=== PATIENT | female | born 1970 | race Caucasian/White ===

== ENCOUNTER 2016-06-04 18:48 | Emergency (ER) | payer SELFPAY ==
--- NOTE | 2016-06-04 19:42 | EDM.PDOC ---
ED HPI GENERAL MEDICAL PROBLEM - General Chief Complaint: Genitourinary Problem Stated Complaint: UTI Time Seen by Provider: 06/04/16 19:36 - History of Present Illness INITIAL COMMENTS - FREE TEXT/NARRATIVE: HISTORY AND PHYSICAL: History of present illness: The patient is a 45-year-old female with a history of frequent UTIs and presents with similar symptoms to her prior UTIs including frequency urgency dysuria and lower back pain. The patient has had these symptoms for about one week and has tried [id number] Azo-Standard pushing hydration. She's had some nausea but no vomiting no diarrhea fevers or chills and no flank pain. Patient states she's been going menopause with hot flashes and intermittent spotting. Patient states that she "can never get " but doesn't elaborate on that. Patient otherwise has not had much of an appetite but is able to eat. Patient has been using [id number] Azo and has been trying to treat the symptoms at home with primary juices well. Review of systems: As per history of present illness and below otherwise all systems reviewed and negative. Past medical history: As per history of present illness and as reviewed below otherwise noncontributory. Surgical history: As per history of present illness and as reviewed below otherwise noncontributory. Social history: No reported history of drug or alcohol abuse. Family history: As per history of present illness and as reviewed below otherwise noncontributory. Physical exam: General: Well-developed well-nourished female who is nontoxic and speaking full sentences. Vital signs were noted by me. HEENT: Atraumatic, normocephalic, negative for conjunctival pallor or scleral icterus, mucous membranes tacky, throat clear, neck supple, nontender, trachea midline. Lungs: Clear to auscultation, breath sounds equal bilaterally, chest nontender. Heart: S1S2, regular, negative for clicks, rubs, or JVD. Abdomen: Soft, nondistended, mild suprapubic tenderness without rebound or guarding and bowel sounds are hypoactive Negative for masses or hepatosplenomegaly. Negative for costovertebral tenderness. Pelvis: Stable nontender. Genitourinary: Deferred. Rectal: Deferred. Extremities: Atraumatic, negative for cords or calf pain. Neurovascular unremarkable. Neuro: Awake, alert, oriented. Cranial nerves II through XII unremarkable. Cerebellum unremarkable. Motor and sensory unremarkable throughout. Exam nonfocal. Back: There are no midline step-offs in his defects of the thoracic or lumbar spine and no CVA tenderness and there is some right-sided paralumbar muscular tenderness on palpation without swelling or defects Diagnostics: UA urine culture UCG Therapeutics: Impression: UTI Definitive disposition and diagnosis as appropriate pending reevaluation and review of above. urinary Pain Score (Numeric/FACES): 10 - Related Data Allergies Allergy/AdvReac Type Severity Reaction Status Date / Time No Known Allergies Allergy Verified 06/04/16 19:21 Home Meds: Home Meds oxyCODONE HCl/Acetaminophen [Percocet 5-325 mg Tablet] 1 tab PO 06/04/16 [ History] Past Medical History - Past Health History Medical/Surgical History: Denies Medical/Surgical History Other HEENT History: Tonsilitis Cardiovascular History: Reports: Other (see below) Other Cardiovascular History: Patient reports past couple of heart racing at times that causes SOB Gastrointestinal History: Reports: Other (see below) Other Gastrointestinal History: Patient reports she was diagnosed with cellulitus of rectum in September and was given antibiotics. 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) Other OB/BYN History: Tubes tied - Infectious Disease History Infectious Disease History: Reports: Chicken pox - Past Surgical History GI Surgical History: Reports: Appendectomy Female Surgical History: Reports: Other (see below) Other Female Surgeries/Procedures: cyst on ovaries history Other Musculoskeletal Surgeries/Procedures:: broken left arm when 12 years old Social & Family History - Family History Family Medical History: Noncontributory Oncologic: Reports: Colon, Lung - Tobacco Use Smoking Status *Q: Current Every Day Smoker Years of Tobacco use: 20 Packs/Tins Daily: 2 Used Tobacco, but Quit: No Second Hand Smoke Exposure: Yes - Alcohol Use Days Per Week of Alcohol Use: 0 - Recreational Drug Use Recreational Drug Use: Yes Drug Use in Last 12 Months: Yes Recreational Drug Type: Reports: Marijuana/Hashish Recreational Drug Use Frequency: Daily ED ROS GENERAL - Review of Systems Review Of Systems: ROS reveals no pertinent complaints other than HPI. ED EXAM, GENERAL - Physical Exam Exam: See Below (See dictation) Course - Vital Signs Last Recorded V/S: Last Vital Signs Temp 36.8 C 06/04/16 19:22 Pulse 109 H 06/04/16 19:22 Resp 18 06/04/16 19:22 BP 138/87 06/04/16 19:22 Pulse Ox 98 06/04/16 19:22 - Orders/Labs/Meds Orders: Active Orders 24 hr Category Date Time Status CULTURE URINE [RM] Stat Lab 06/04/16 19:29 Received Labs: Laboratory Tests 06/04/16 06/04/16 Range/Units 19:29 19:29 Urine Color DARK YELLOW Urine Appearance CLOUDY Urine pH 6.0 (5.0-8.0) Ur Specific [place] >= 1.030 (1.001-1.035) Urine Protein 100 (NEGATIVE) mg/dL Urine Glucose (UA) NEGATIVE (NEGATIVE) mg/dL Urine Ketones TRACE H (NEGATIVE) mg/dL Urine Occult Blood LARGE H (NEGATIVE) Urine Nitrite NEGATIVE (NEGATIVE) Urine Bilirubin SMALL H (NEGATIVE) Urine Ictotest NEGATIVE Urine Urobilinogen 1.0 (<2.0) EU/dL Ur Leukocyte Esterase MODERATE (NEGATIVE) Urine RBC 2-6 (0-2/HPF) Urine WBC TO NUMEROUS TO COUNT H (0-5/HPF) Ur Epithelial Cells FEW (NONE-FEW) Calcium Oxalate Crystal RARE (NEGATIVE) Urine Bacteria 3+ H (NEGATIVE) Urine HCG, Qual NEGATIVE (NEGATIVE) Departure - Departure Time of Disposition: 21:01 Disposition: Home, Self-Care 01 Condition: good Clinical Impression: UTI, Urinary tract infectious disease Forms: ED Department Discharge Additional Instructions: The following information is given to patients seen in the emergency department who are being discharged to home. This information is to outline your options for follow-up care. We provide all patients seen in our emergency department with a follow-up referral. The need for follow-up, as well as the timing and circumstances, are variable depending upon the specifics of your emergency department visit. If you don't have a primary care physician on staff, we will provide you with a referral. We always advise you to contact your personal physician following an emergency department visit to inform them of the circumstance of the visit and for follow-up with them and/or the need for any referrals to a consulting specialist. The emergency department will also refer you to a specialist when appropriate. This referral assures that you have the opportunity for followup care with a specialist. All of these measure are taken in an effort to provide you with optimal care, which includes your followup. Under all circumstances we always encourage you to contact your private physician who remains a resource for coordinating your care. When calling for followup care, please make the office aware that this follow-up is from your recent emergency room visit. If for any reason you are refused follow-up, please contact the [facility] emergency department at and ask to speak to the emergency department charge nurse. [facility] Primary care- [place] [address] Please push hydration as we discussed and take antibiotics until they are finished. These followup with provider in the clinic for further care and evaluation and return here as needed and as discussed. - My Orders Last 24 Hours: My Active Orders 06/04/16 19:29 CULTURE URINE [RM] Stat - Assessment/Plan Last 24 Hours: My Active Orders 06/04/16 19:29 CULTURE URINE [RM] Stat
[2016-06-05 05:50] VITALS: BP 134/95
== END 2016-06-04 21:16 | disposition home or self-care (01) ==
LOC: MW.ED 18:48
DX: N39.0 Urinary tract infection, site not specified (principal); Z90.49 Acquired absence of other specified parts of digestive tract; Z98.890 Other specified postprocedural states; F17.210 Nicotine dependence, cigarettes, uncomplicated
CPT/HCPCS: 81001; 81025; 87086; 87088; 87186; 99283

== ENCOUNTER 2017-01-28 14:54 | Emergency (ER) | payer SELFPAY ==
[2017-01-28] MEDS ORDERED: Lidocaine 1% 20 ML MDV INJECT ONE (15:17)
[2017-01-28] MEDS ORDERED: Bupivacaine 0.5% 10 ML SDV INJECT ONE (15:17)
--- NOTE | 2017-01-28 15:54 | EDM.PDOC ---
ED HPI GENERAL MEDICAL PROBLEM - General Chief Complaint: Skin Complaint Stated Complaint: BOIL UNDER BOTH ARMPITS Time Seen by Provider: 01/28/17 15:09 Source of Information: Reports: Patient History Limitations: Reports: No Limitations - History of Present Illness INITIAL COMMENTS - FREE TEXT/NARRATIVE: History of present illness: []Patient noted painful lumps in both her armpits 4 days ago. She has never had these before states that she recently changed her deodorant to a spray and uses a different razor with a lubricant on it. Yesterday the left under arm popped and drained fluid but she has to on the right under arm that are increasing in size and pain. Denies any fevers. Review of systems: As per history of present illness and below otherwise all systems reviewed and negative. Past medical history: As per history of present illness and as reviewed below otherwise noncontributory. Surgical history: As per history of present illness and as reviewed below otherwise noncontributory. Social history: No reported history of drug or alcohol abuse. Family history: As per history of present illness and as reviewed below otherwise noncontributory. Physical exam: General: Well developed, well nourished in NAD HEENT: Atraumatic, normocephalic, pupils reactive, negative for conjunctival pallor or scleral icterus, mucous membranes moist, throat clear, neck supple, nontender, trachea midline. Lungs: Clear to auscultation, breath sounds equal bilaterally, chest nontender. Heart: S1S2, regular, negative for clicks, rubs, or JVD. Abdomen: Soft, nondistended, nontender. Negative for masses or hepatosplenomegaly. Negative for costovertebral tenderness. Pelvis: Stable nontender. Genitourinary: Deferred. Rectal: Deferred. Extremities: One abscess on the left axilla minimal fluctuance approximately 1 cm by half a centimeter without spreading erythema. The right axilla has lesions 1 fluctuant that is 2 cm x 2 cm and one that is half a centimeter by half centimeter and nonfluctuant., negative for cords or calf pain. Neurovascular unremarkable. Neuro: Awake, alert, oriented. Cranial nerves II through XII unremarkable. Cerebellum unremarkable. Motor and sensory unremarkable throughout. Exam nonfocal. Diagnostics: [] Therapeutics: []I&D 2 of the 3 abscesses with MRSA wound culture ordered Impression: []Axillary abscesses bilaterally Plan: []Remove packing tomorrow, continue warm soaks tramadol for pain Bactrim as directed until gone follow-up primary care physician Definitive disposition and diagnosis as appropriate pending reevaluation and review of above. Bilateral Arm Pain Score (Numeric/FACES): 10 - Related Data Allergies Allergy/AdvReac Type Severity Reaction Status Date / Time No Known Allergies Allergy Verified 01/28/17 15:18 Home Meds: Home Meds Sulfamethoxazole/Trimethoprim [Bactrim Ds Tablet] 1 each PO BID #20 tablet 01/28 [Rx] traMADol [Ultram] 50 mg PO Q8H PRN #16 tablet 01/28/17 [Rx] Past Medical History - Past Health History Medical/Surgical History: Denies Medical/Surgical History Other HEENT History: Tonsilitis Cardiovascular History: Reports: Other (See Below) Other Cardiovascular History: Patient reports past couple of heart racing at times that causes SOB Gastrointestinal History: Reports: Other (See Below) Other Gastrointestinal History: Patient reports she was diagnosed with cellulitus of rectum in September and was given antibiotics. 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 - Infectious Disease History Infectious Disease History: Reports: Chicken Pox - Past Surgical History Female Surgical History: Reports: Other (See Below) Other Musculoskeletal Surgeries/Procedures:: broken left arm when 12 years old Social & Family History - Family History Family Medical History: Noncontributory Oncologic: Reports: Colon, Lung - Tobacco Use Smoking Status *Q: Current Some Day Smoker Years of Tobacco use: 20 Packs/Tins Daily: 1 Used Tobacco, but Quit: No Second Hand Smoke Exposure: Yes - Caffeine Use Caffeine Use: Reports: Coffee - Alcohol Use Days Per Week of Alcohol Use: 0 - Recreational Drug Use Recreational Drug Use: Yes Drug Use in Last 12 Months: Yes Recreational Drug Type: Reports: Marijuana/Hashish Recreational Drug Use Frequency: Monthly ED ROS GENERAL - Review of Systems Review Of Systems: See Below (See history of present illness) ED EXAM, SKIN/RASH Exam: See Below (See history of present illness) Course - Vital Signs Last Recorded V/S: Last Vital Signs Temp 97.6 F 01/28/17 15:20 Pulse 76 01/28/17 15:20 Resp 20 01/28/17 15:20 BP 117/72 01/28/17 15:20 Pulse Ox 100 01/28/17 15:20 - Orders/Labs/Meds Orders: Active Orders 24 hr Category Date Time Status CULTURE MRSA [RM] Stat Lab 01/28/17 15:52 Ordered Meds: Medications Discontinued Medications Generic Name Dose Route Start Last Admin Trade Name Freale PRN Reason Stop Dose Admin Bupivacaine HCl 10 ml 01/28/17 15:17 01/28/17 15:30 Sensorcaine-Mpf 0.5% INJECT 01/28/17 15:18 10 ml ONETIME ONE Administration Lidocaine HCl 20 ml 01/28/17 15:17 01/28/17 15:30 Xylocaine 1% INJECT 01/28/17 15:18 20 ml ONETIME ONE Administration Departure - Departure Time of Disposition: 15:54 Disposition: Home, Self-Care 01 Condition: Good Clinical Impression: Abscesses of both axillae - Discharge Information Prescriptions: Sulfamethoxazole/Trimethoprim [Bactrim Ds Tablet] 1 each PO BID #20 tablet traMADol [Ultram] 50 mg PO Q8H PRN #16 tablet PRN Reason: Pain Referrals: PCP,None [Primary Care Provider] - Forms: ED Department Discharge Additional Instructions: The following information is given to patients seen in the emergency department who are being discharged to home. This information is to outline your options for follow-up care. We provide all patients seen in our emergency department with a follow-up referral. The need for follow-up, as well as the timing and circumstances, are variable depending upon the specifics of your emergency department visit. If you don't have a primary care physician on staff, we will provide you with a referral. We always advise you to contact your personal physician following an emergency department visit to inform them of the circumstance of the visit and for follow-up with them and/or the need for any referrals to a consulting specialist. The emergency department will also refer you to a specialist when appropriate. This referral assures that you have the opportunity for follow-up care with a specialist. All of these measure are taken in an effort to provide you with optimal care, which includes your follow-up. Under all circumstances we always encourage you to contact your private physician who remains a resource for coordinating your care. When calling for follow-up care, please make the office aware that this follow-up is from your recent emergency room visit. If for any reason you are refused follow-up, please contact the [facility] Emergency Department at and asked to speak to the emergency department charge nurse. Remove packing tomorrow, warm soaks as much as possible, Take Bactrim and Ultram as directed, follow up with primary care physician when available. [facility] [address] [place] [id number] - My Orders Last 24 Hours: My Active Orders 01/28/17 15:52 CULTURE MRSA [RM] Stat - Assessment/Plan Last 24 Hours: My Active Orders 01/28/17 15:52 CULTURE MRSA [RM] Stat
[2017-01-28 16:13] VITALS: BP 127/80
== END 2017-01-28 16:09 | disposition home or self-care (01) ==
LOC: EEVIPCON 14:54 → MW.ED 14:54
DX: L02.411 Cutaneous abscess of right axilla (principal); L02.412 Cutaneous abscess of left axilla; F17.210 Nicotine dependence, cigarettes, uncomplicated
CPT/HCPCS: 10060; 87070; 87077; 87186; 99283

== ENCOUNTER 2017-04-14 13:59 | Emergency (ER) | payer SELFPAY ==
[2017-04-14 14:03] VITALS: BP 107/83
--- NOTE | 2017-04-14 14:03 | EDM.PDOC ---
ED HPI GENERAL MEDICAL PROBLEM - General Chief Complaint: Chest Pain Stated Complaint: AMB Time Seen by Provider: 04/14/17 14:03 Source of Information: Reports: Patient, EMS, EMS Notes Reviewed History Limitations: Reports: No Limitations - History of Present Illness INITIAL COMMENTS - FREE TEXT/NARRATIVE: HISTORY AND PHYSICAL: [46-year-old female presenting per EMS with concerns over cough and flu symptoms and chest pain] History of Present Illness: Patient's been sick for the last 2 days with flulike illness cough coughing hurts her chest Review of Systems: As per history of present illness and below otherwise all systems reviewed and negative. Past medical history: As per history of present illness and as reviewed below otherwise noncontributory. Surgical history: As per history of present illness and as reviewed below otherwise noncontributory. Social history: No reported history of drug or alcohol abuse. Family history: As per history of present illness and as reviewed below otherwise noncontributory. Physical exam: Alert and oriented female who is teary, denies having history of any panic attacks HEENT: Atraumatic, normocehpalic, pupils reactive, negative for conjunctival pallor or scleral icterus, mucous membranes moist, throat clear, neck supple, nontender, trachea midline. Lungs: Crackles on auscultation, breath sounds equal bilaterally, chest tender with light palpation to her sternal area and ribs. Heart: S1S2, regular, negative for clicks, rubs, or JVD. Abdomen: Soft, nondistended, nontender. Negative for masses or hepatossplenmegaly. Mild bilateral for costovertebral tenderness. Pelvis: Stable nontender. Genitourinary: Deferred. Rectal: Deferred Extremities: Atraumatic, negative for cords or calf pain. Neurovascular unremarkable. Neuro: Awake, alert, oriented. Cranial nerves II through XII unremarkable. Cerebellum unremarkable. Motor and sensory unremarkable throughout. Exam nonfocal. Discussed with the patient that all her testing is fairly normal there is perhaps an early urinary tract infection The sternum and chest wall is hurting likely due to the coughing that she has been experiencing Diagnostics: [CBC CMP UA influenza rapid strep] Therapeutics: [] Impression: [Viral syndrome Chest wall pain] UTI Plan: [Discharged to home Bactrim DS 1 twice daily 5 days Follow-up with your primary care next week] Definitive disposition and diagnosis as appropriate pending reevaluation and review of above. Onset: Gradual Duration: Day(s): (2), Getting Worse Location: Reports: Chest Quality: Reports: Ache Severity: Mild Improves with: Reports: None Worsens with: Reports: None Associated Symptoms: Reports: Cough, Nausea/Vomiting Left Chest Pain Score (Numeric/FACES): 10 - Related Data Allergies Allergy/AdvReac Type Severity Reaction Status Date / Time No Known Allergies Allergy Verified 04/14/17 14:03 Home Meds: Home Meds Sulfamethoxazole/Trimethoprim [Bactrim Ds Tablet] 1 each PO Q12HR #10 tablet [Rx] Past Medical History - Past Health History Medical/Surgical History: Denies Medical/Surgical History Other HEENT History: Tonsilitis Cardiovascular History: Reports: Other (See Below) Other Cardiovascular History: Patient reports past couple of heart racing at times that causes SOB Gastrointestinal History: Reports: Other (See Below) Other Gastrointestinal History: Patient reports she was diagnosed with cellulitus of rectum in September and was given antibiotics. 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 (See Below) Other OB/BYN History: Tubes tied - Infectious Disease History Infectious Disease History: Reports: Chicken Pox - Past Surgical History Female Surgical History: Reports: Other (See Below) Other Musculoskeletal Surgeries/Procedures:: broken left arm when 12 years old Social & Family History - Family History Family Medical History: Noncontributory Oncologic: Reports: Colon, Lung - Tobacco Use Smoking Status *Q: Current Some Day Smoker Years of Tobacco use: 20 Packs/Tins Daily: 1 Used Tobacco, but Quit: No Second Hand Smoke Exposure: Yes - Caffeine Use Caffeine Use: Reports: Coffee - Alcohol Use Days Per Week of Alcohol Use: 0 - Recreational Drug Use Recreational Drug Use: Yes Drug Use in Last 12 Months: Yes Recreational Drug Type: Reports: Marijuana/Hashish Recreational Drug Use Frequency: Monthly ED ROS GENERAL - Review of Systems Review Of Systems: ROS reveals no pertinent complaints other than HPI. ED EXAM, GENERAL - Physical Exam Exam: See Below (see dictation) Course - Vital Signs Last Recorded V/S: Last Vital Signs Temp 36.1 C 04/14/17 14:00 Pulse 90 04/14/17 14:00 Resp 22 H 04/14/17 14:00 BP 107/83 04/14/17 14:00 Pulse Ox 98 04/14/17 14:00 - Orders/Labs/Meds Orders: Active Orders 24 hr Category Date Time Status CULTURE STREP A CONFIRMATION [] Stat Lab 04/14/17 14:30 Results STREP SCRN A RAPID W CULT CONF [] Stat Lab 04/14/17 14:30 Results Sodium Chloride 0.9% [Normal Saline] 500 ml Med 04/14/17 14:30 Active IV STAT Sodium Chloride 0.9% [Saline Flush] Med 04/14/17 14:06 Active 10 ml FLUSH ASDIRECTED PRN Sodium Chloride 0.9% [Saline Flush] Med 04/14/17 14:06 Active 2.5 ml FLUSH ASDIRECTED PRN Saline Lock Insert [OM.PC] Stat Oth 04/14/17 14:06 Ordered Medication Orders Sodium Chloride (Normal Saline) 500 mls @ 999 mls/hr IV STAT CHAU Last Admin: 04/14/17 14:40 Dose: 999 mls/hr Sodium Chloride (Saline Flush) 10 ml FLUSH ASDIRECTED PRN PRN Reason: Keep Vein Open Sodium Chloride (Saline Flush) 2.5 ml FLUSH ASDIRECTED PRN PRN Reason: Keep Vein Open Labs: Laboratory Tests 04/14/17 04/14/17 04/14/17 Range/Units 14:42 14:42 14:42 WBC 6.76 (4.0-11.0) K/uL RBC 5.09 (4.30-5.90) M/uL Hgb 15.9 (12.0-16.0) g/dL Hct 44.8 (36.0-46.0) % MCV 88.0 (80.0-98.0) fL MCH 31.2 (27.0-32.0) pg MCHC 35.5 (31.0-37.0) g/dL RDW Std Deviation 42.6 (28.0-62.0) fl RDW Coeff of Jennifer 13 (11.0-15.0) % Plt Count 181 (150-400) K/uL MPV 10.70 (7.40-12.00) fL Neut % (Auto) 45.1 L (48.0-80.0) % Lymph % (Auto) 44.7 H (16.0-40.0) % [place] % (Auto) 7.2 (0.0-15.0) % Eos % (Auto) 2.7 (0.0-7.0) % Baso % (Auto) 0.3 (0.0-1.5) % Neut # (Auto) 3.1 (1.4-5.7) K/uL Lymph # (Auto) 3.0 H (0.6-2.4) K/uL [place] # (Auto) 0.5 (0.0-0.8) K/uL Eos # (Auto) 0.2 (0.0-0.7) K/uL Baso # (Auto) 0.0 (0.0-0.1) K/uL Nucleated RBC % 0.0 /100WBC Nucleated RBCs # 0 K/uL Sodium 138 (136-146) mmol/L Potassium 4.0 (3.5-5.1) mmol/L Chloride 104 (98-110) mmol/L Carbon Dioxide 22 (21-31) mmol/L BUN 18 (6.0-23.0) mg/dL Creatinine 1.0 (0.6-1.5) mg/dL Est Cr Clr Drug Dosing 55.60 mL/min Estimated GFR (MDRD) 59.7 ml/min Glucose 94 (60-110) mg/dL Calcium 10.1 (8.8-10.8) mg/dL Total Bilirubin 0.6 (0.1-1.5) mg/dL AST 12 (5-40) IU/L ALT 14 (8-54) IU/L Alkaline Phosphatase 97 (40-150) Troponin I < 0.10 (0.0-0.29) NG/ML Total Protein 7.9 (6.0-8.0) g/dL Albumin 4.5 (3.5-5.0) g/dL Globulin 3.4 (2.0-3.5) g/dL Albumin/Globulin Ratio 1.3 (1.3-2.8) Urine Color Urine Appearance Urine pH (5.0-8.0) Ur Specific [place] (1.001-1.035) Urine Protein (NEGATIVE) mg/dL Urine Glucose (UA) (NEGATIVE) mg/dL Urine Ketones (NEGATIVE) mg/dL Urine Occult Blood (NEGATIVE) Urine Nitrite (NEGATIVE) Urine Bilirubin (NEGATIVE) Urine Ictotest Urine Urobilinogen (<2.0) EU/dL Ur Leukocyte Esterase (NEGATIVE) Urine RBC (0-2/HPF) Urine WBC (0-5/HPF) Ur Epithelial Cells (NONE-FEW) Urine Bacteria (NEGATIVE) Urine Mucus (NONE-MOD) 04/14/17 Range/Units 15:15 WBC (4.0-11.0) K/uL RBC (4.30-5.90) M/uL Hgb (12.0-16.0) g/dL Hct (36.0-46.0) % MCV (80.0-98.0) fL MCH (27.0-32.0) pg MCHC (31.0-37.0) g/dL RDW Std Deviation (28.0-62.0) fl RDW Coeff of Jennifer (11.0-15.0) % Plt Count (150-400) K/uL MPV (7.40-12.00) fL Neut % (Auto) (48.0-80.0) % Lymph % (Auto) (16.0-40.0) % [place] % (Auto) (0.0-15.0) % Eos % (Auto) (0.0-7.0) % Baso % (Auto) (0.0-1.5) % Neut # (Auto) (1.4-5.7) K/uL Lymph # (Auto) (0.6-2.4) K/uL [place] # (Auto) (0.0-0.8) K/uL Eos # (Auto) (0.0-0.7) K/uL Baso # (Auto) (0.0-0.1) K/uL Nucleated RBC % /100WBC Nucleated RBCs # K/uL Sodium (136-146) mmol/L Potassium (3.5-5.1) mmol/L Chloride (98-110) mmol/L Carbon Dioxide (21-31) mmol/L BUN (6.0-23.0) mg/dL Creatinine (0.6-1.5) mg/dL Est Cr Clr Drug Dosing mL/min Estimated GFR (MDRD) ml/min Glucose (60-110) mg/dL Calcium (8.8-10.8) mg/dL Total Bilirubin (0.1-1.5) mg/dL AST (5-40) IU/L ALT (8-54) IU/L Alkaline Phosphatase (40-150) Troponin I (0.0-0.29) NG/ML Total Protein (6.0-8.0) g/dL Albumin (3.5-5.0) g/dL Globulin (2.0-3.5) g/dL Albumin/Globulin Ratio (1.3-2.8) Urine Color YELLOW Urine Appearance CLEAR Urine pH 6.0 (5.0-8.0) Ur Specific [place] >= 1.030 (1.001-1.035) Urine Protein TRACE (NEGATIVE) mg/dL Urine Glucose (UA) NEGATIVE (NEGATIVE) mg/dL Urine Ketones TRACE H (NEGATIVE) mg/dL Urine Occult Blood NEGATIVE (NEGATIVE) Urine Nitrite NEGATIVE (NEGATIVE) Urine Bilirubin MODERATE H (NEGATIVE) Urine Ictotest NEGATIVE Urine Urobilinogen 1.0 (<2.0) EU/dL Ur Leukocyte Esterase TRACE (NEGATIVE) Urine RBC 0-1 (0-2/HPF) Urine WBC 0-1 (0-5/HPF) Ur Epithelial Cells MODERATE (NONE-FEW) Urine Bacteria FEW (NEGATIVE) Urine Mucus MODERATE (NONE-MOD) Meds: Medications Generic Name Dose Route Start Last Admin Trade Name Freq PRN Reason Stop Dose Admin Sodium Chloride 500 mls @ 999 mls/hr 04/14/17 14:30 04/14/17 14:40 Normal Saline IV 999 mls/hr STAT CHAU Administration Sodium Chloride 10 ml 04/14/17 14:06 Saline Flush FLUSH ASDIRECTED PRN Keep Vein Open Sodium Chloride 2.5 ml 04/14/17 14:06 Saline Flush FLUSH ASDIRECTED PRN Keep Vein Open Discontinued Medications Generic Name Dose Route Start Last Admin Trade Name Freq PRN Reason Stop Dose Admin Ketorolac Tromethamine 30 mg 04/14/17 14:17 04/14/17 14:39 Toradol IVPUSH 04/14/17 14:18 30 mg ONETIME ONE Administration Morphine Sulfate 2 mg 04/14/17 16:00 Morphine IVPUSH 04/14/17 16:01 ONETIME ONE Ondansetron HCl 4 mg 04/14/17 14:17 04/14/17 14:40 Zofran IVPUSH 04/14/17 14:18 4 mg ONETIME ONE Administration Departure - Departure Time of Disposition: 16:05 Disposition: Home, Self-Care 01 Condition: Good Clinical Impression: Chest wall pain, Viral syndrome UTI (urinary tract infection) Qualifiers: Urinary tract infection type: site unspecified Hematuria presence: without hematuria Qualified Code(s): N39.0 - Urinary tract infection, site not specified Prescriptions: Sulfamethoxazole/Trimethoprim [Bactrim Ds Tablet] 1 each PO Q12HR #10 tablet Instructions: Urinary Tract Infection, Adult, Chest Wall Pain Referrals: PCP,Unknown [Primary Care Provider] - Forms: ED Department Discharge Additional Instructions: The following information is given to patients seen in the emergency department who are being discharged to home. This information is to outline your options for follow-up care. We provide all patients seen in our emergency department with a follow-up referral. The need for follow-up, as well as the timing and circumstances, are variable depending upon the specifics of your emergency department visit. If you don't have a primary care physician on staff, we will provide you with a referral. We always advise you to contact your personal physician following an emergency department visit to inform them of the circumstance of the visit and for follow-up with them and/or the need for any referrals to a consulting specialist. The emergency department will also refer you to a specialist when appropriate. This referral assures that you have the opportunity for followup care with a specialist. All of these measure are taken in an effort to provide you with optimal care, which includes your followup. Under all circumstances we always encourage you to contact your private physician who remains a resource for coordinating your care. When calling for followup care, please make the office aware that this follow-up is from your recent emergency room visit. If for any reason you are refused follow-up, please contact the [facility] emergency department at and asked to speak to the emergency department charge nurse. You've been found to have a viral illness while in the emergency department You're chest pain is likely due to your coughing You also had a urinary tract infection Follow-up next week with your primary care provider or return to the emergency department if worse over the weekend - My Orders Last 24 Hours: My Active Orders 04/14/17 14:06 Sodium Chloride 0.9% [Saline Flush] 10 ml FLUSH ASDIRECTED PRN Sodium Chloride 0.9% [Saline Flush] 2.5 ml FLUSH ASDIRECTED PRN Saline Lock Insert [OM.PC] Stat 04/14/17 14:30 CULTURE STREP A CONFIRMATION [RM] Stat STREP SCRN A RAPID W CULT CONF [RM] Stat Sodium Chloride 0.9% [Normal Saline] 500 ml IV STAT - Assessment/Plan Last 24 Hours: My Active Orders 04/14/17 14:06 Sodium Chloride 0.9% [Saline Flush] 10 ml FLUSH ASDIRECTED PRN Sodium Chloride 0.9% [Saline Flush] 2.5 ml FLUSH ASDIRECTED PRN Saline Lock Insert [OM.PC] Stat 04/14/17 14:30 CULTURE STREP A CONFIRMATION [RM] Stat STREP SCRN A RAPID W CULT CONF [RM] Stat Sodium Chloride 0.9% [Normal Saline] 500 ml IV STAT
[2017-04-14] MEDS ORDERED: Sodium Chloride 0.9% 10 ML Syringe FLUSH PRN (14:06)
[2017-04-14] MEDS ORDERED: Sodium Chloride 0.9% 2.5 ML Syringe FLUSH PRN (14:06)
[2017-04-14] MEDS ORDERED: Ondansetron 4 MG/2 ML SDV IVPUSH ONE (14:17)
[2017-04-14] MEDS ORDERED: Ketorolac 30 MG/ML SDV IVPUSH ONE (14:17)
[2017-04-14] MEDS ORDERED: Sodium Chloride 0.9% 500 ML IV SCH (14:30)
--- NOTE | 2017-04-14 15:32 | CR ---
EXAMINATION: Two-view chest (PA and Lateral views). HISTORY: Chest wall pain. FINDINGS: The trachea is midline. The cardiomediastinal silhouette is within normal limits. No pulmonary infilt rates, effusions or pneumothorax. Osseous structures appear unremarkable. IMPRESSION: No acute cardiopulmonary process.
[2017-04-14] MEDS ORDERED: Morphine 2 MG/ML Syringe IVPUSH ONE (16:00)
== END 2017-04-14 16:40 | disposition home or self-care (01) ==
LOC: MW.ED 13:59
DX: R07.89 Other chest pain (principal); B34.9 Viral infection, unspecified; N39.0 Urinary tract infection, site not specified; F17.210 Nicotine dependence, cigarettes, uncomplicated
CPT/HCPCS: 36415; 71046; 80053; 81001; 84484; 85025; 87081; 87804; 87880; 93005; 96361; 96374; 96375; 99285; J1885; J2270; J2405; J7040; 99283

== ENCOUNTER 2018-11-18 09:30 | Emergency (ER) | payer SELFPAY ==
--- NOTE | 2018-11-18 09:57 | EDM.PDOC ---
ED HPI GENERAL MEDICAL PROBLEM - General Chief Complaint: Skin Complaint Stated Complaint: RIGHT LOWER ARM BOIL Time Seen by Provider: 11/18/18 09:45 - History of Present Illness INITIAL COMMENTS - FREE TEXT/NARRATIVE: HISTORY AND PHYSICAL: History of present illness: Patient's 48-year-old white female presents with concern of subcutaneous nodule in the right axilla she's had similar episodes in the past related to axillary abscesses. No fever chills nausea vomiting or other complaints Review of systems: As per history of present illness and below otherwise all systems reviewed and negative. Past medical history: As per history of present illness and as reviewed below otherwise noncontributory. Surgical history: As per history of present illness and as reviewed below otherwise noncontributory. Social history: No reported history of drug or alcohol abuse. Family history: As per history of present illness and as reviewed below otherwise noncontributory. Physical exam: HEENT: Atraumatic, normocephalic, pupils reactive, negative for conjunctival pallor or scleral icterus, mucous membranes moist, throat clear, neck supple, nontender, trachea midline. Lungs: Clear to auscultation, breath sounds equal bilaterally, chest nontender. Heart: S1S2, regular, negative for clicks, rubs, or JVD. Abdomen: Soft, nondistended, nontender. Negative for masses or hepatosplenomegaly. Negative for costovertebral tenderness. Pelvis: Stable nontender. Genitourinary: Deferred. Rectal: Deferred. Extremities: Atraumatic, negative for cords or calf pain. Neurovascular unremarkable. As a subcutaneous nodule quite possibly representing a adenitis in her right axilla there is no fluctuance minimal erythema there some tenderness to palpation Neuro: Awake, alert, oriented. Cranial nerves II through XII unremarkable. Cerebellum unremarkable. Motor and sensory unremarkable throughout. Exam nonfocal. Diagnostics: None Therapeutics: None Impression: #1 subcutaneous nodule right axilla probable axillary adenitis Definitive disposition and diagnosis as appropriate pending reevaluation and review of above. right armpit Pain Score (Numeric/FACES): 10 - Related Data Allergies Allergy/AdvReac Type Severity Reaction Status Date / Time No Known Allergies Allergy Verified 02/07/18 10:20 Home Meds: Home Meds . [No Known Home Meds] 11/18/18 [History] Past Medical History - Past Health History Medical/Surgical History: Denies Medical/Surgical History Other HEENT History: Tonsilitis Cardiovascular History: Reports: Other (See Below) Other Cardiovascular History: Patient reports past couple of heart racing at times that causes SOB Gastrointestinal History: Reports: Other (See Below) Other Gastrointestinal History: Patient reports she was diagnosed with cellulitus of rectum in September and was given antibiotics. 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 Below) Other KNITTER WIRE MESH History: Ovarian cyst, Tubes tied Musculoskeletal History: Reports: Fracture - Infectious Disease History Infectious Disease History: Reports: Chicken Pox - Past Surgical History GI Surgical History: Reports: Appendectomy Female Surgical History: Reports: Other (See Below) Other Musculoskeletal Surgeries/Procedures:: broken left arm when 12 years old Social & Family History - Family History Family Medical History: Noncontributory Oncologic: Reports: Colon, Lung - Tobacco Use Smoking Status *Q: Current Every Day Smoker Years of Tobacco use: 20 Packs/Tins Daily: 1 - Caffeine Use Caffeine Use: Reports: Coffee - Recreational Drug Use Recreational Drug Use: No ED ROS GENERAL - Review of Systems Review Of Systems: ROS reveals no pertinent complaints other than HPI. ED EXAM, SKIN/RASH Exam: See Below (dictation) Course - Vital Signs Text/Narrative:: I discussed the absence of fluctuance with patient the induration and the need for follow-up Gen. surgery and that this indeed may be evolving abscess and ultimately need incision and drainage but this point does not she understands and agrees she will use warm compresses as directed Motrin Tylenol as directed and take Keflex as prescribed Last Recorded V/S: Last Vital Signs Temp 36.1 C 11/18/18 09:46 Pulse 92 11/18/18 09:46 Resp 20 11/18/18 09:46 BP 129/87 11/18/18 09:46 Pulse Ox 100 11/18/18 09:46 Departure - Departure Time of Disposition: 09:56 Disposition: Home, Self-Care 01 Condition: Good Clinical Impression: Subcutaneous nodule, Adenitis - Discharge Information Referrals: PCP,None [Primary Care Provider] - Additional Instructions: The following information is given to patients seen in the emergency department who are being discharged to home. This information is to outline your options for follow-up care. We provide all patients seen in our emergency department with a follow-up referral. The need for follow-up, as well as the timing and circumstances, are variable depending upon the specifics of your emergency department visit. If you don't have a primary care physician on staff, we will provide you with a referral. We always advise you to contact your personal physician following an emergency department visit to inform them of the circumstance of the visit and for follow-up with them and/or the need for any referrals to a consulting specialist. The emergency department will also refer you to a specialist when appropriate. This referral assures that you have the opportunity for followup care with a specialist. All of these measure are taken in an effort to provide you with optimal care, which includes your followup. Under all circumstances we always encourage you to contact your private physician who remains a resource for coordinating your care. When calling for followup care, please make the office aware that this follow-up is from your recent emergency room visit. If for any reason you are refused follow-up, please contact the [facility] emergency department at and asked to speak to the emergency department charge nurse. [facility] [address] [place] [id number] [facility] General [facility] Professional Building [address] [place] [address], [address] [place] [address] Keflex as prescribed warm compresses as directed Motrin/Tylenol as directed follow-up with general surgery above and primary care call to schedule appointment return as needed as discussed
[2018-11-18 10:15] VITALS: BP 127/86; PULSE 86
== END 2018-11-18 10:13 | disposition home or self-care (01) ==
LOC: MW.ED 09:30
DX: R22.31 Localized swelling, mass and lump, right upper limb (principal); F17.200 Nicotine dependence, unspecified, uncomplicated
CPT/HCPCS: 99283

== ENCOUNTER 2018-11-28 09:42 | Emergency (ER) | payer SELFPAY ==
[2018-11-28 09:54] VITALS: BP 151/88; PULSE 89
[2018-11-28] MEDS ORDERED: Ondansetron 4 MG Tab.DIS PO ONE (10:08)
[2018-11-28] MEDS ORDERED: Lidocaine 1% with EPINEPHrine 1:100,000 20 ML MDV INJECT ONE (10:08)
[2018-11-28] MEDS ORDERED: HYDROmorphone 1 MG/ML Syringe IM ONE (10:08)
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
[2018-11-28] MEDS ORDERED: Bupivacaine 0.5% 10 ML SDV INJECT ONE (10:09)
== END 2018-11-28 11:40 | disposition home or self-care (01) ==
LOC: MW.ED 09:42
DX: L02.411 Cutaneous abscess of right axilla (principal); F17.210 Nicotine dependence, cigarettes, uncomplicated
CPT/HCPCS: 10060; 96372; 99282; A9270; J1170; J3490

== ENCOUNTER 2019-03-25 18:57 | Emergency (ER) | payer SELFPAY ==
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
[2019-03-25] MEDS ORDERED: Bacitracin Oint 1 GM U/D Packet TOP ONE (19:37)
--- NOTE | 2019-03-25 20:12 | CR ---
Chest: 2 views of the chest were obtained. Comparison: Prior chest x-ray of 04/14/17. Heart size and mediastinum are within normal limits. Lungs are clear. Slight scoliosis is noted within the spine. Bony structures show nothing acute. Impression: 1. Scoliosis. Nothing acute is appreciated on 2 view chest x-ray. Diagnostic code #2 Study was dictated in [place] Standard Time
--- NOTE | 2019-03-25 20:17 | CT ---
CT facial bones Technique: Multiple axial sections through the facial bones were obtained. Reconstructed coronal and sagittal images were reviewed. Comparison: No prior study. Findings: Mastoid sinuses are clear. Visualized paranasal sinuses are also clear. Soft tissue swelling is seen within the left cheek and around the left periorbital region. Soft tissue swelling also noted within the forehead scalp. Right and left globes are symmetric. No retrobulbar abnormality is appreciated. No orbital fracture is seen. No maxillary wall fracture is identified. Mandible is intact without fracture. Zygomatic arches are also intact. Impression: 1. Soft tissue swelling on the left side as described above. 2. No acute bony abnormality is appreciated. Diagnostic code #3 Study was dictated in [place] Standard Time
--- NOTE | 2019-03-25 20:17 | CT ---
Head CT Technique: Multiple axial sections through the brain were obtained. Intravenous contrast was not utilized. Comparison: No previous study. Findings: Soft tissue tissue swelling is seen around the left periorbital region and within the left forehead scalp. Ventricles along with basal cisterns and sulci over the convexities are within normal limits for the patient's age. No abnormal parenchymal densities are seen. No evidence of intracranial hemorrhage. No midline shift or mass effect is seen. Visualized paranasal sinuses show nothing acute. Visualized paranasal sinuses show nothing acute. No acute calvarial abnormality is appreciated. Impression: 1. Soft tissue swelling as described above. 2. No acute intracranial abnormality is appreciated. Diagnostic code #2 Study was dictated in [place] Standard Time
[2019-03-25 20:29] VITALS: BP 127/90; PULSE 109
== END 2019-03-25 20:34 | disposition home or self-care (01) ==
LOC: MW.ED 18:57
DX: S09.90XA Unspecified injury of head, initial encounter (principal); S20.212A Contusion of left front wall of thorax, initial encounter; S00.83XA Contusion of other part of head, initial encounter; S05.12XA Contusion of eyeball and orbital tissues, left eye, initial encounter; S00.531A Contusion of lip, initial encounter; S01.83XA Puncture wound without foreign body of other part of head, initial encounter; S01.132A Puncture wound without foreign body of left eyelid and periocular area, initial encounter; Y04.0XXA Assault by unarmed brawl or fight, initial encounter
CPT/HCPCS: 70450; 70450-26; 70486; 70486-26; 71046; 71046-26; 99285-25

== ENCOUNTER 2019-08-29 11:05 | Emergency (ER) | payer SELFPAY ==
--- NOTE | 2019-08-29 11:37 | EDM.PDOC ---
<Calvin Garza - Last Filed: 08/29/19 11:40> ED HPI GENERAL MEDICAL PROBLEM - General Chief Complaint: ENT Problem Stated Complaint: RT EAR PAIN Time Seen by Provider: 08/29/19 11:10 Source of Information: Reports: Patient History Limitations: Reports: No Limitations - History of Present Illness INITIAL COMMENTS - FREE TEXT/NARRATIVE: Female presenting today with right-sided ear pain and pain anterior to the right ear. States pain began 2 days earlier and has been using yyfe-lzx-[id number] Tylenol Advil with moderate relief. Is also endorsed a history of TMJ and does grind her teeth at night. Endorses poor dentition as well. Denies any fevers, chills, body aches but increasing pain with palpation of right anterior sinus and right ear. Denies any trauma to ear since previous trauma couple days earlier. Right Ear Pain Score (Numeric/FACES): 9 - Related Data Allergies Allergy/AdvReac Type Severity Reaction Status Date / Time No Known Allergies Allergy Verified 08/29/19 11:20 Home Meds: Home Meds Amoxicillin/Potassium Clav [Augmentin 875-125 Tablet] 1 each PO BID 5 Days #10 tablet 08/29/19 [Rx] Ciprofloxacin 0.25 ml EARRT BID 10 Days #1 bottle 08/29/19 [Rx] Past Medical History - Past Health History Medical/Surgical History: Denies Medical/Surgical History Other HEENT History: Tonsilitis Cardiovascular History: Reports: Other (See Below) Other Cardiovascular History: Patient reports past couple of heart racing at times that causes SOB Gastrointestinal History: Reports: None Other Gastrointestinal History: Patient reports she was diagnosed with cellulitus of rectum in September and was given antibiotics. 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: Other (See Below) Other EXPLOSIVE OPERATOR FUSE History: Ovarian cyst Musculoskeletal History: Reports: Fracture Neurological History: Reports: None Psychiatric History: Reports: None Endocrine/Metabolic History: Reports: None Hematologic History: Reports: None Immunologic History: Reports: None Oncologic (Cancer) History: Reports: None Dermatologic History: Reports: Cellulitis - Infectious Disease History Infectious Disease History: Reports: None - Past Surgical History Head Surgeries/Procedures: Reports: None GI Surgical History: Reports: Appendectomy Female Surgical History: Reports: Tubal Ligation Other Musculoskeletal Surgeries/Procedures:: broken Left arm when 12 years old Social & Family History - Family History Family Medical History: Noncontributory Oncologic: Reports: Colon, Lung - Tobacco Use Smoking Status *Q: Current Every Day Smoker Years of Tobacco use: 32 Packs/Tins Daily: 1 - Caffeine Use Caffeine Use: Reports: Coffee - Recreational Drug Use Recreational Drug Use: Yes Drug Use in Last 12 Months: Yes Recreational Drug Type: Reports: Marijuana/Hashish Recreational Drug Use Frequency: Daily ED ROS ENT - Review of Systems Review Of Systems: See Below Constitutional: Reports: No Symptoms HEENT: Reports: Ear Pain, Sinus Problem. Denies: Dental Pain, Nose Pain, Throat Pain, Throat Swelling Respiratory: Reports: No Symptoms Cardiovascular: Reports: No Symptoms GI/Abdominal: Reports: No Symptoms Musculoskeletal: Reports: No Symptoms Skin: Reports: No Symptoms Neurological: Denies: Headache ED EXAM, ENT - Physical Exam Exam: See Below Exam Limited By: No Limitations General Appearance: Alert, No Apparent Distress Ears: Other (right ear: canal erythema, mild TM erythema; tenderness w. otoscope insertion; no pus appreciated. right maxillary sinue tenderness...poor denitition but no signs of acute infection/gingivitis. hearing intact. ) Nose: Normal Inspection, Normal Mucousa, No Blood Mouth/Throat: Normal Oropharynx Head: Atraumatic, Normocephalic Neck: Supple, Non-Tender, Full Range of Motion. No: Limited Range of Motion, Lymphadenopathy (L), Lymphadenopathy (R), Tender Lateral, Tender Midline, Thyromegaly Respiratory/Chest: No Respiratory Distress, Lungs Clear Cardiovascular: Regular Rate, Rhythm, No Edema GI/Abdominal: Soft, Non-Tender Extremities: Normal Range of Motion Neurological: Alert, Oriented Lymphatic: No Adenopathy Course - Vital Signs Text/Narrative:: tenderness over right maxillary sinus and anterior to right ear, no overlying skin changes. no fever, chills per patient. no other source of infection except redness in right canal. Departure - Departure Time of Disposition: 11:28 Disposition: Home, Self-Care 01 Clinical Impression: Otitis externa, Otitis media - Discharge Information Prescriptions: Amoxicillin/Potassium Clav [Augmentin 875-125 Tablet] 1 each PO BID 5 Days #10 tablet Ciprofloxacin 0.25 ml EARRT BID 10 Days #1 bottle Instructions: Ear Drops, Adult, Fotw-ag-[id number], Otitis Externa Referrals: PCP,None [Primary Care Provider] - Forms: ED Department Discharge Additional Instructions: The following information is given to patients seen in the emergency department who are being discharged to home. This information is to outline your options for follow-up care. We provide all patients seen in our emergency department with a follow-up referral. The need for follow-up, as well as the timing and circumstances, are variable depending upon the specifics of your emergency department visit. If you don't have a primary care physician on staff, we will provide you with a referral. We always advise you to contact your personal physician following an emergency department visit to inform them of the circumstance of the visit and for follow-up with them and/or the need for any referrals to a consulting specialist. The emergency department will also refer you to a specialist when appropriate. This referral assures that you have the opportunity for follow-up care with a specialist. All of these measure are taken in an effort to provide you with optimal care, which includes your follow-up. Under all circumstances we always encourage you to contact your private physician who remains a resource for coordinating your care. When calling for follow-up care, please make the office aware that this follow-up is from your recent emergency room visit. If for any reason you are refused follow-up, please contact the [facility] Emergency Department at and asked to speak to the emergency department charge nurse. [facility] [address] [place] [address] [address] Sepsis Event Note (ED) - Evaluation Sepsis Screening Result: No Definite Risk <Sanjay Mao - Last Filed: 08/29/19 12:00> ED HPI GENERAL MEDICAL PROBLEM - History of Present Illness INITIAL COMMENTS - FREE TEXT/NARRATIVE: History of present illness: [] Review of systems: As per history of present illness and below otherwise all systems reviewed and negative. Past medical history: As per history of present illness and as reviewed below otherwise noncontributory. Surgical history: As per history of present illness and as reviewed below otherwise noncontributory. Social history: No reported history of drug or alcohol abuse. Family history: As per history of present illness and as reviewed below otherwise noncontr ibutory. Physical exam: HEENT: Atraumatic, normocephalic, pupils reactive, negative for conjunctival pallor or scleral icterus, mucous membranes moist, throat clear, neck supple, nontender, trachea midline. Lungs: Clear to auscultation, breath sounds equal bilaterally, chest nontender. Heart: S1S2, regular, negative for clicks, rubs, or JVD. Abdomen: Soft, nondistended, nontender. Negative for masses or hepatosplenomegaly. Negative for costovertebral tenderness. Pelvis: Stable nontender. Genitourinary: Deferred. Rectal: Deferred. Extremities: Atraumatic, negative for cords or calf pain. Neurovascular unremarkable. Neuro: Awake, alert, oriented. Cranial nerves II through XII unremarkable. Cerebellum unremarkable. Motor and sensory unremarkable throughout. Exam nonfocal. Diagnostics: [] Therapeutics: [] Impression: [] Plan: [] Definitive disposition and diagnosis as appropriate pending reevaluation and review of above. ED ROS ENT - Review of Systems Review Of Systems: See Below ED EXAM, ENT - Physical Exam Exam: See Below Course - Vital Signs Text/Narrative:: Patient here with ear pain there is some thickening and erythema into the external auditory canal TMs normal no signs of mastoiditis plan as above. Last Recorded V/S: Last Vital Signs Temp 36.3 C 08/29/19 11:16 Pulse 96 08/29/19 11:16 Resp 17 08/29/19 11:16 BP 130/87 08/29/19 11:16 Pulse Ox 100 08/29/19 11:16 Sepsis Event Note (ED) - Focused Exam Vital Signs: Vital Signs Temp Pulse Resp BP Pulse Ox 08/29/19 11:16 36.3 C 96 17 130/87 100
[2019-08-29 12:06] VITALS: BP 123/81; PULSE 83
== END 2019-08-29 12:09 | disposition home or self-care (01) ==
LOC: MW.ED 11:05
DX: H66.91 Otitis media, unspecified, right ear (principal); H60.91 Unspecified otitis externa, right ear; F17.210 Nicotine dependence, cigarettes, uncomplicated
CPT/HCPCS: 99282

== ENCOUNTER 2019-10-12 10:18 | Emergency (ER) | payer SELFPAY ==
--- NOTE | 2019-10-12 10:23 | EDM.PDOC ---
ED HPI GENERAL MEDICAL PROBLEM - General Chief Complaint: Respiratory Problem Stated Complaint: COUGHING AND HARD TO BREATHE AT NIGHT Time Seen by Provider: 10/12/19 10:21 Source of Information: Reports: Patient History Limitations: Reports: No Limitations - History of Present Illness INITIAL COMMENTS - FREE TEXT/NARRATIVE: HISTORY AND PHYSICAL: History of present illness: Patient is a 48-year-old female who presents to the emergency room with complaints of chest tightness x2 weeks. She states initially when the "tightness" started she was taking multiple iojy-ehi-eqmfpcg medications to try to improve her symptoms. After about 1 week her symptoms did start improving and she returned to work. 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 Now the waod-xax-lomgvwm medications are not working as well. Besides the chest pain/tightness she has had a cough and subjective fevers. Patient denies any headache, change in vision, syncope or near syncope. Denies any neck pain, abdominal pain, nausea, vomiting, diarrhea, constipation or dysuria. Has not noted any blood in urine or stool. Patient has been eating and drinking appropriately. Review of systems: As per history of present illness and below otherwise all systems reviewed and negative. Past medical history: As per history of present illness and as reviewed below otherwise noncontributory. Surgical history: As per history of present illness and as reviewed below otherwise noncontributory. Social history: See social history for further information Family history: As per history of present illness and as reviewed below otherwise noncontributory. Physical exam: General: Well developed and well nourished 48-year-old female. Alert and orie ntated x 3. Nontoxic in appearance and in no acute distress. Vital signs are stable and have been reviewed by me. Nursing notes were reviewed. HEENT: Atraumatic, normocephalic, pupils equal and reactive bilaterally, negative for conjunctival pallor or scleral icterus, mucous membranes moist, TMs normal bilaterally, throat clear, neck supple, nontender, trachea midline. No drooling or trismus noted. No meningeal signs. No hot potato voice noted. Lungs: Fine inspiratory and expiratory wheezing, breath sounds equal bilaterally, chest nontender. Normal work of breathing, no accessory muscles use d. Heart: S1S2, regular rate and rhythm without overt murmur Abdomen: Soft, nondistended, nontender. Negative for masses or hepatosplenomegaly. Negative for costovertebral tenderness. Skin: Intact, warm, dry. No lesions or rashes noted. Hematologic: No petechiae or purpra. Mucosa appropriate color and normal nail bed color and refill. Extremities: Atraumatic, moves all extremities per self without difficulty or deficits, negative for cords or calf pain. Neurovascular unremarkable. Neuro: Awake, alert, oriented. Cranial nerves II through XII unremarkable. Cerebellum unremarkable. Motor and sensory unremarkable throughout. Exam nonfocal. Psychiatric: Mood and affect are appropriate. Normal thought process. Answering questions appropriately. Notes: Patient does have a leukocytosis of 16. COVID screening is negative. CMP, troponin, d-dimer are within normal limits. No significant findings on EKG, this was compared with previous EKG no changes. Chest x-ray shows no evidence of pneumonia, although with her leukocytosis and symptoms I am going to treat with azithromycin, prednisone and albuterol inhaler. Patient's vital signs are stable. Patient does feel improved after the medications. She would like to be discharged home. We discussed in great length signs and symptoms that would prompt them to return to the Emergency Department. Medication, follow up and supportive care measures were reviewed and discussed. Voices understanding and is agreeable to plan of care. Denies any further questions or concerns at this time. Diagnostics: CBC, CMP, troponin, EKG, d-dimer, COVID Therapeutics: Solu-Medrol, Albuterol Prescription: Zpak, Prednisone, Albuterol Impression: Upper respiratory infection Plan: 1. Today your physical exam is concerning for atypical pneumonia. Take the medications as prescribed. 2. Tylenol and/or Ibuprofen as needed for pain and fever management. You can continue taking zduk-fxy-ilaxfue cough and cold medications as desired. 3. We always encourage you to follow up with your primary care provider or recommended specialist in the next few days for re-evaluation and further care/management. If your symptoms should worsen, new symptoms develop or any of the signs and symptoms we discussed should arise please return to the emergency room or call 911 (if needed). Definitive disposition and diagnosis as appropriate pending reevaluation and review of above. chest Pain Score (Numeric/FACES): 8 - Related Data Allergies Allergy/AdvReac Type Severity Reaction Status Date / Time No Known Allergies Allergy Verified 10/12/19 10:38 Home Meds: Home Meds Azithromycin [Zithromax] 1 dose PO DAILY 5 Days #6 tab 10/12/19 [Rx] predniSONE [Prednisone] 40 mg PO DAILY 5 Days #10 tablet 10/12/19 [Rx] Past Medical History - Past Health History Medical/Surgical History: Denies Medical/Surgical History Other HEENT History: Tonsilitis Cardiovascular History: Reports: Other (See Below) Other Cardiovascular History: Patient reports past couple of heart racing at times that causes SOB Gastrointestinal History: Reports: None Other Gastrointestinal History: Patient reports she was diagnosed with cellulitus of rectum in September and was given antibiotics. 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: Reports: Other (See Below) Other SOCIAL WORK SPECIALIST History: Ovarian cyst Musculoskeletal History: Reports: Fracture Neurological History: Reports: None Psychiatric History: Reports: None Endocrine/Metabolic History: Reports: None Hematologic History: Reports: None Immunologic History: Reports: None Oncologic (Cancer) History: Reports: None Dermatologic History: Reports: Cellulitis - Infectious Disease History Infectious Disease History: Reports: None - Past Surgical History Head Surgeries/Procedures: Reports: None GI Surgical History: Reports: Appendectomy Female Surgical History: Reports: Tubal Ligation Other Musculoskeletal Surgeries/Procedures:: broken Left arm when 12 years old Social & Family History - Family History Family Medical History: Noncontributory Oncologic: Reports: Colon, Lung - Caffeine Use Caffeine Use: Reports: Coffee ED ROS GENERAL - Review of Systems Review Of Systems: Comprehensive ROS is negative, except as noted in HPI. ED EXAM, GENERAL - Physical Exam Exam: See Below (See dictation) Course - Vital Signs Last Recorded V/S: Last Vital Signs Temp 97.9 F 10/12/19 10:33 Pulse 74 10/12/19 10:33 Resp 16 10/12/19 10:33 BP 141/81 H 10/12/19 10:33 Pulse Ox 94 L 10/12/19 10:33 - Orders/Labs/Meds Orders: Active Orders 24 hr Category Date Time Status Communication Order [RC] STAT Care 10/12/19 12:45 Ordered EKG Documentation Completion [RC] STAT Care 10/12/19 10:43 Active RT Post Treatment Assessment [RC] Click to Edit Care 10/12/19 12:46 Ordered RT Pre-Treatment Assessment [RC] Click to Edit Care 10/12/19 12:46 Ordered Sodium Chloride 0.9% [Saline Flush] Med 10/12/19 10:43 Active 10 ml FLUSH ASDIRECTED PRN Sodium Chloride 0.9% [Saline Flush] Med 10/12/19 10:43 Active 2.5 ml FLUSH ASDIRECTED PRN Saline Lock Insert [OM.PC] Stat Oth 10/12/19 10:43 Ordered Medication Orders Sodium Chloride (Saline Flush) 10 ml FLUSH ASDIRECTED PRN PRN Reason: Keep Vein Open Last Admin: 10/12/19 11:29 Dose: 10 ml Documented by: VONNIE Sodium Chloride (Saline Flush) 2.5 ml FLUSH ASDIRECTED PRN PRN Reason: Keep Vein Open Last Admin: 10/12/19 11:29 Dose: 2.5 ml Documented by: VONNIE Labs: Laboratory Tests 10/12/19 10/12/19 10/12/19 Range/Units 11:20 11:20 11:20 WBC 16.01 H (4.0-11.0) K/uL RBC 5.06 (4.30-5.90) M/uL Hgb 15.7 (12.0-16.0) g/dL Hct 45.6 (36.0-46.0) % MCV 90.1 (80.0-98.0) fL MCH 31.0 (27.0-32.0) pg MCHC 34.4 (31.0-37.0) g/dL RDW Std Deviation 44.2 (28.0-62.0) fl RDW Coeff of Jennifer 13 (11.0-15.0) % Plt Count 200 (150-400) K/uL MPV 11.00 (7.40-12.00) fL Neut % (Auto) 48.1 (48.0-80.0) % Lymph % (Auto) 20.0 (16.0-40.0) % Barber % (Auto) 4.4 (0.0-15.0) % Eos % (Auto) 26.7 H (0.0-7.0) % Baso % (Auto) 0.8 (0.0-1.5) % Neut # (Auto) 7.7 H (1.4-5.7) K/uL Lymph # (Auto) 3.2 H (0.6-2.4) K/uL Barber # (Auto) 0.7 (0.0-0.8) K/uL Eos # (Auto) 4.3 H (0.0-0.7) K/uL Baso # (Auto) 0.1 (0.0-0.1) K/uL Nucleated RBC % 0.0 /100WBC Nucleated RBCs # 0 K/uL D-Dimer, Quantitative 0.27 (0.0-0.50) mg/L FEU Sodium 136 (136-145) mmol/L Potassium 4.1 (3.5-5.1) mmol/L Chloride 101 (98-107) mmol/L Carbon Dioxide 25.2 (21.0-32.0) mmol/L BUN 12 (7.0-18.0) mg/dL Creatinine 0.9 (0.6-1.0) mg/dL Est Cr Clr Drug Dosing 60.46 mL/min Estimated GFR (MDRD) > 60.0 ml/min Glucose 124 H (74-106) mg/dL Calcium 9.3 (8.5-10.1) mg/dL Total Bilirubin 0.5 (0.2-1.0) mg/dL AST 18 (15-37) IU/L ALT 21 (14-63) IU/L Alkaline Phosphatase 127 H (46-116) U/L Troponin I < 0.050 (0.000-0.056) ng/mL Total Protein 7.9 (6.4-8.2) g/dL Albumin 4.1 (3.4-5.0) g/dL Globulin 3.8 (2.6-4.0) g/dL Albumin/Globulin Ratio 1.1 (0.9-1.6) TSH 3rd Generation 0.64 (0.36-3.74) uIU/mL COVID-19 (DAWIT) (NEGATIVE) 10/12/19 Range/Units 12:15 WBC (4.0-11.0) K/uL RBC (4.30-5.90) M/uL Hgb (12.0-16.0) g/dL Hct (36.0-46.0) % MCV (80.0-98.0) fL MCH (27.0-32.0) pg MCHC (31.0-37.0) g/dL RDW Std Deviation (28.0-62.0) fl RDW Coeff of Jennifer (11.0-15.0) % Plt Count (150-400) K/uL MPV (7.40-12.00) fL Neut % (Auto) (48.0-80.0) % Lymph % (Auto) (16.0-40.0) % Barber % (Auto) (0.0-15.0) % Eos % (Auto) (0.0-7.0) % Baso % (Auto) (0.0-1.5) % Neut # (Auto) (1.4-5.7) K/uL Lymph # (Auto) (0.6-2.4) K/uL Barber # (Auto) (0.0-0.8) K/uL Eos # (Auto) (0.0-0.7) K/uL Baso # (Auto) (0.0-0.1) K/uL Nucleated RBC % /100WBC Nucleated RBCs # K/uL D-Dimer, Quantitative (0.0-0.50) mg/L FEU Sodium (136-145) mmol/L Potassium (3.5-5.1) mmol/L Chloride (98-107) mmol/L Carbon Dioxide (21.0-32.0) mmol/L BUN (7.0-18.0) mg/dL Creatinine (0.6-1.0) mg/dL Est Cr Clr Drug Dosing mL/min Estimated GFR (MDRD) ml/min Glucose (74-106) mg/dL Calcium (8.5-10.1) mg/dL Total Bilirubin (0.2-1.0) mg/dL AST (15-37) IU/L ALT (14-63) IU/L Alkaline Phosphatase (46-116) U/L Troponin I (0.000-0.056) ng/mL Total Protein (6.4-8.2) g/dL Albumin (3.4-5.0) g/dL Globulin (2.6-4.0) g/dL Albumin/Globulin Ratio (0.9-1.6) TSH 3rd Generation (0.36-3.74) uIU/mL COVID-19 (DAWIT) NEGATIVE (NEGATIVE) Meds: Medications Generic Name Dose Route Start Last Admin Trade Name Freq PRN Reason Stop Dose Admin Sodium Chloride 10 ml 10/12/19 10:43 10/12/19 11:29 Saline Flush FLUSH 10 ml ASDIRECTED PRN Administration Keep Vein Open Sodium Chloride 2.5 ml 10/12/19 10:43 10/12/19 11:29 Saline Flush FLUSH 2.5 ml ASDIRECTED PRN Administration Keep Vein Open Discontinued Medications Generic Name Dose Route Start Last Admin Trade Name Freq PRN Reason Stop Dose Admin Albuterol 1 gm 10/12/19 12:45 Ventolin Hfa INH 10/12/19 12:46 ONETIME ONE Sodium Chloride 1,000 mls @ 999 mls/hr 10/12/19 10:43 10/12/19 11:13 Normal Saline IV 10/12/19 11:43 Not Given STAT ONE Methylprednisolone Sodium Succinate 125 mg 10/12/19 10:48 10/12/19 11:29 Solu-Medrol IVPUSH 10/12/19 10:49 125 mg ONETIME ONE Administration Departure - Departure Time of Disposition: 12:48 Disposition: Home, Self-Care 01 Clinical Impression: Upper respiratory infection Qualifiers: URI type: unspecified URI Qualified Code(s): J06.9 - Acute upper respiratory infection, unspecified - Discharge Information Prescriptions: predniSONE [Prednisone] 40 mg PO DAILY 5 Days #10 tablet Azithromycin [Zithromax] 1 dose PO DAILY 5 Days #6 tab Instructions: Upper Respiratory Infection, Adult, Iauo-ex-Brva Referrals: PCP,None [Primary Care Provider] - Forms: ED Department Discharge Additional Instructions: The following information is given to patients seen in the emergency department who are being discharged to home. This information is to outline your options for follow-up care. We provide all patients seen in our emergency department with a follow-up referral. The need for follow-up, as well as the timing and circumstances, are variable depending upon the specifics of your emergency department visit. If you don't have a primary care physician on staff, we will provide you with a referral. We always advise you to contact your personal physician following an emergency department visit to inform them of the circumstance of the visit and for follow-up with them and/or the need for any referrals to a consulting specialist. The emergency department will also refer you to a specialist when appropriate. This referral assures that you have the opportunity for follow-up care with a specialist. All of these measure are taken in an effort to provide you with optimal care, which includes your follow-up. Under all circumstances we always encourage you to contact your private physician who remains a resource for coordinating your care. When calling for follow-up care, please make the office aware that this follow-up is from your recent emergency room visit. If for any reason you are refused follow-up, please contact the Emergency Department at and asked to speak to the emergency department charge nurse. Primary Care [address] [place] [address] [address] Thank you for choosing the [facility] emergency department in [place] for your medical needs today. It was a pleasure caring for you. Today you were seen in the emergency department for cough and chest pain. 1. Today your physical exam is concerning for upper respiratory infection. Your COVID test was negative. Take the medications as prescribed. 2. Tylenol and/or Ibuprofen as needed for pain and fever management. You can continue taking blos-zwa-hqivspw cough and cold medications as desired. 3. We always encourage you to follow up with your primary care provider or recommended specialist in the next few days for re-evaluation and further care/management. If your symptoms should worsen, new symptoms develop or any of the signs and symptoms we discussed should arise please return to the emergency room or call 911 (if needed). Sepsis Event Note (ED) - Focused Exam Vital Signs: Vital Signs Temp Pulse Resp BP Pulse Ox 10/12/19 10:33 97.9 F 74 16 141/81 H 94 L - My Orders Last 24 Hours: My Active Orders 10/12/19 10:43 EKG Documentation Completion [RC] STAT Sodium Chloride 0.9% [Saline Flush] 10 ml FLUSH ASDIRECTED PRN Sodium Chloride 0.9% [Saline Flush] 2.5 ml FLUSH ASDIRECTED PRN Saline Lock Insert [OM.PC] Stat 10/12/19 12:45 Communication Order [RC] STAT 10/12/19 12:46 RT Post Treatment Assessment [RC] Click to Edit RT Pre-Treatment Assessment [RC] Click to Edit - Assessment/Plan Last 24 Hours: My Active Orders 10/12/19 10:43 EKG Documentation Completion [RC] STAT Sodium Chloride 0.9% [Saline Flush] 10 ml FLUSH ASDIRECTED PRN Sodium Chloride 0.9% [Saline Flush] 2.5 ml FLUSH ASDIRECTED PRN Saline Lock Insert [OM.PC] Stat 10/12/19 12:45 Communication Order [RC] STAT 10/12/19 12:46 RT Post Treatment Assessment [RC] Click to Edit RT Pre-Treatment Assessment [RC] Click to Edit
[2019-10-12] MEDS ORDERED: Sodium Chloride 0.9% 10 ML Syringe FLUSH PRN (10:43)
[2019-10-12] MEDS ORDERED: Sodium Chloride 0.9% 2.5 ML Syringe FLUSH PRN (10:43)
[2019-10-12] MEDS ORDERED: Sodium Chloride 0.9% 1,000 ML IV ONE (10:43)
[2019-10-12] MEDS ORDERED: methylPREDNISolone Sodium Succinate 125 MG/2 ML SDV IVPUSH ONE (10:48)
[2019-10-12 11:58] LABS: BLOOD UREA NITROGEN,BUN 12 mg/dL (7.0-18.0); CARBON DIOXIDE,CO2 25.2 mmol/L (21.0-32.0); CHLORIDE,CL 101 mmol/L (98-107); GLUCOSE RANDOM 124 mg/dL (74-106); POTASSIUM,K 4.1 mmol/L (3.5-5.1); SODIUM,NA 136 mmol/L (136-145)
--- NOTE | 2019-10-12 12:28 | CR ---
Chest: 2 views of the chest were obtained. Comparison: Prior chest x-ray of 03/25/19. Heart size and mediastinum are within normal limits. Lungs are clear with no acute parenchymal change. Bony structures show nothing acute. Impression: 1. Nothing acute is seen on 2 view chest x-ray. 2. No significant change from previous study is seen. Diagnostic code #1 This report was dictated in MDT
[2019-10-12] MEDS ORDERED: Albuterol 8 GM Inhaler INH ONE (12:45)
[2019-10-12] MEDS ORDERED: Albuterol HFA 18 Gm Inhaler INH SCH (13:15)
[2019-10-12] MEDS ORDERED: Albuterol HFA 18 Gm Inhaler INH ONE (13:15)
[2019-10-12 13:20] VITALS: BP 135/85; PULSE 75
== END 2019-10-12 13:16 | disposition home or self-care (01) ==
LOC: MW.ED 10:18
DX: J06.9 Acute upper respiratory infection, unspecified (principal); R07.89 Other chest pain; Z20.828 Contact with and (suspected) exposure to other viral communicable diseases; Z98.51 Tubal ligation status; Z90.49 Acquired absence of other specified parts of digestive tract; Z79.899 Other long term (current) drug therapy
CPT/HCPCS: 36415; 71046; 80053; 84443; 84484; 85025; 85379; 87635; 93005; 96374; 99285; J2930; J3535-GY; U0002

== ENCOUNTER 2020-04-20 19:13 | Emergency (ER) | payer SELFPAY ==
--- NOTE | 2020-04-20 19:47 | EDM.PDOC ---
ED HPI GENERAL MEDICAL PROBLEM - General Chief Complaint: Abdominal Pain Stated Complaint: PAIN UNDER RIBS Time Seen by Provider: 04/20/20 19:36 Source of Information: Reports: Patient History Limitations: Reports: No Limitations - History of Present Illness INITIAL COMMENTS - FREE TEXT/NARRATIVE: HISTORY AND PHYSICAL: History of present illness: Patient is a 49-year-old female who presents to the emergency room with complaints of left upper quadrant/rib and left flank pain. She noticed the pain this morning and was concerned with possibly having a kidney infection. Prior to arrival she had voided and had some discomfort associated with it. Mild nausea without vomiting. Patient denies any fever, chills, headache, change in vision, syncope or near syncope. Denies any chest pain, neck pain, shortness of breath or cough. Denies any diarrhea, constipation or dysuria. Has not noted any blood in urine or stool. No concern for . Patient has been eating and drinking appropriately. Review of systems: As per history of present illness and below otherwise all systems reviewed and negative. Past medical history: As per history of present illness and as reviewed below otherwise noncontributory. Surgical history: As per history of present illness and as reviewed below otherwise noncontributory. Social history: See social history for further information Family history: As per history of present illness and as reviewed below otherwise noncontributory. Physical exam: General: Well developed and well nourished 49 year old female. Alert and orienta charissa x 3. Nontoxic in appearance and in no acute distress. Vital signs are stable and have been reviewed by me. Nursing notes were reviewed. HEENT: Atraumatic, normocephalic, pupils equal and reactive bilaterally, negative for conjunctival pallor or scleral icterus, mucous membranes moist, TMs normal bilaterally, throat clear, neck supple, nontender, trachea midline. No drooling or trismus noted. No meningeal signs. No hot potato voice noted. Lungs: Clear to auscultation bilaterally. No wheezes, rales, or rhonchi. Chest nontender. Normal work of breathing, no accessory muscles used. Heart: S1S2, regular rate and rhythm without overt murmur, gallops, or rubs. No JVD. No peripheral edema Abdomen: Soft, nondistended, LUQ tendernes. Normoactive bowel sounds. Left sided costovertebral tenderness. Skin: Intact, warm, dry. No lesions or rashes noted. Hematologic: No petechiae or purpra. Mucosa appropriate color and normal nail bed color and refill. Extremities: Atraumatic, moves all extremities per self without difficulty or deficits, negative for cords or calf pain. Neurovascular unremarkable. Neuro: Awake, alert, oriented. Cranial nerves II through XII unremarkable. Cerebellum unremarkable. Motor and sensory unremarkable throughout. Exam nonfocal. Psychiatric: Mood and affect are appropriate. Normal thought process. Answering questions appropriately. Notes: *This patient was seen and evaluated during the 2019 SARS-CoV-2 novel coronavirus pandemic period. Community viral transmission is ongoing at time of this encounter and the emergency department is operating under pandemic response procedures. I have talked with the patient about today's findings, in addition to providing specific details for plan of care. Reassessment at the time of disposition demonstrates that the patient is in no acute distress. The patient is stable for discharge, counseling was provided and we discussed in great detail signs and symptoms that would prompt them to return to the Emergency Department. Medication, follow up and supportive care measures were reviewed and discussed. Voices understanding and is agreeable to plan of care. Denies any further questions or concerns at this time. Diagnostics: CBC, CMP, Lipase, UA, CXR Therapeutics: IV fluids, Zofran, Toradol Prescription: None Impression: Abdominal Pain, left upper abdomen Chest wall pain Plan: 1. You were evaluated today on an emergent basis. Your lab work and chest x-ray are within normal limits. Vital signs are stable and within normal limits. Your pain could be related to viral illness, but at this time there is no emergent reason for your discomfort. 2. You can alternate Tylenol and Ibuprofen as needed for pain and fever management. 3. We encourage you to follow up with your primary care provider and/or recommended specialist in the next few days for re-evaluation and further care/management. 4. If your symptoms should worsen, new symptoms develop or any of the signs and symptoms we discussed should arise please return to the emergency room or call 911 (if needed). Definitive disposition and diagnosis as appropriate pending reevaluation and review of above. Left ribs, flank, back Pain Score (Numeric/FACES): 10 abdomen Pain Score (Numeric/FACES): 10 - Related Data Allergies Allergy/AdvReac Type Severity Reaction Status Date / Time No Known Allergies Allergy Verified 04/20/20 19:45 Home Meds: Home Meds . [No Known Home Meds] 04/20/20 [History] Past Medical History - Past Health History Medical/Surgical History: Denies Medical/Surgical History Other HEENT History: Tonsilitis Cardiovascular History: Reports: Other (See Below) Other Cardiovascular History: Patient reports past couple of heart racing at [employer] that causes SOB Gastrointestinal History: Reports: None Other Gastrointestinal History: Patient reports she was diagnosed with cellulitus of rectum in September and was given antibiotics. 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 History: Ovarian cyst Musculoskeletal History: Reports: Fracture Neurological History: Reports: None Psychiatric History: Reports: None Endocrine/Metabolic History: Reports: None Hematologic History: Reports: None Immunologic History: Reports: None Oncologic (Cancer) History: Reports: None Dermatologic History: Reports: Cellulitis - Infectious Disease History Infectious Disease History: Reports: None - Past Surgical History Head Surgeries/Procedures: Reports: None GI Surgical History: Reports: Appendectomy Female Surgical History: Reports: Tubal Ligation Other Musculoskeletal Surgeries/Procedures:: broken Left arm when 12 years old Social & Family History - Family History Family Medical History: No Pertinent Family History Oncologic: Reports: Colon, Lung - Caffeine Use Caffeine Use: Reports: Coffee ED ROS GENERAL - Review of Systems Review Of Systems: Comprehensive ROS is negative, except as noted in HPI. ED EXAM, GI/ABD - Physical Exam Exam: See Below (See dictation) Course - Vital Signs Last Recorded V/S: Last Vital Signs Temp 98.1 F 04/20/20 19:42 Pulse 105 H 04/20/20 19:42 Resp 20 04/20/20 19:42 BP 149/98 H 04/20/20 19:42 Pulse Ox 97 04/20/20 19:42 - Orders/Labs/Meds Labs: Laboratory Tests 04/20/20 04/20/20 04/20/20 Range/Units 19:50 20:15 20:15 WBC 8.77 (4.0-11.0) K/uL RBC 5.03 (4.30-5.90) M/uL Hgb 15.6 (12.0-16.0) g/dL Hct 45.5 (36.0-46.0) % MCV 90.5 (80.0-98.0) fL MCH 31.0 (27.0-32.0) pg MCHC 34.3 (31.0-37.0) g/dL RDW Std Deviation 43.6 (28.0-62.0) fl RDW Coeff of Jennifer 13 (11.0-15.0) % Plt Count 254 (150-400) K/uL MPV 10.60 (7.40-12.00) fL Neut % (Auto) 45.0 L (48.0-80.0) % Lymph % (Auto) 45.0 H (16.0-40.0) % [place] % (Auto) 6.6 (0.0-15.0) % Eos % (Auto) 3.1 (0.0-7.0) % Baso % (Auto) 0.3 (0.0-1.5) % Neut # (Auto) 3.9 (1.4-5.7) K/uL Lymph # (Auto) 4.0 H (0.6-2.4) K/uL [place] # (Auto) 0.6 (0.0-0.8) K/uL Eos # (Auto) 0.3 (0.0-0.7) K/uL Baso # (Auto) 0.0 (0.0-0.1) K/uL Nucleated RBC % 0.0 /100WBC Nucleated RBCs # 0 K/uL Sodium 137 (136-145) mmol/L Potassium 4.2 (3.5-5.1) mmol/L Chloride 100 (98-107) mmol/L Carbon Dioxide 24.8 (21.0-32.0) mmol/L BUN 12 (7.0-18.0) mg/dL Creatinine 0.8 (0.6-1.0) mg/dL Est Cr Clr Drug Dosing 67.28 mL/min Estimated GFR (MDRD) > 60.0 ml/min Glucose 98 (74-106) mg/dL Calcium 9.5 (8.5-10.1) mg/dL Total Bilirubin 0.9 (0.2-1.0) mg/dL AST 12 L (15-37) IU/L ALT 26 (14-63) IU/L Alkaline Phosphatase 88 (46-116) U/L Total Protein 8.2 (6.4-8.2) g/dL Albumin 4.5 (3.4-5.0) g/dL Globulin 3.7 (2.6-4.0) g/dL Albumin/Globulin Ratio 1.2 (0.9-1.6) Lipase 96 (73-393) U/L Urine Color YELLOW Urine Appearance CLEAR Urine pH 5.5 (5.0-8.0) Ur Specific [place] >= 1.030 (1.001-1.035) Urine Protein NEGATIVE (NEGATIVE) mg/dL Urine Glucose (UA) NEGATIVE (NEGATIVE) mg/dL Urine Ketones TRACE H (NEGATIVE) mg/dL Urine Occult Blood NEGATIVE (NEGATIVE) Urine Nitrite NEGATIVE (NEGATIVE) Urine Bilirubin SMALL H (NEGATIVE) Urine Ictotest NEGATIVE Urine Urobilinogen 1.0 (<2.0) EU/dL Ur Leukocyte Esterase NEGATIVE (NEGATIVE) Meds: Medications Discontinued Medications Generic Name Dose Route Start Last Admin Trade Name Marbin PRN Reason Stop Dose Admin Sodium Chloride 1,000 mls @ 999 mls/hr 04/20/20 19:54 04/20/20 20:12 Normal Saline IV 04/20/20 20:54 999 mls/hr STAT ONE Administration Ketorolac Tromethamine 30 mg 04/20/20 19:54 04/20/20 20:12 Toradol IVPUSH 04/20/20 19:55 30 mg ONETIME ONE Administration Ondansetron HCl 4 mg 04/20/20 19:54 04/20/20 20:12 Zofran IVPUSH 04/20/20 19:55 4 mg ONETIME ONE Administration Departure - Departure Time of Disposition: 21:21 Disposition: Home, Self-Care 01 Clinical Impression: Chest wall pain Abdominal pain Qualifiers: Abdominal location: left upper quadrant Qualified Code(s): R10.12 - Left upper quadrant pain - Discharge Information Instructions: Chest Wall Pain, [id number] Referrals: PCP,None [Primary Care Provider] - Forms: ED Department Discharge Additional Instructions: The following information is given to patients seen in the emergency department who are being discharged to home. This information is to outline your options for follow-up care. We provide all patients seen in our emergency department with a follow-up referral. The need for follow-up, as well as the timing and circumstances, are variable depending upon the specifics of your emergency department visit. If you don't have a primary care physician on staff, we will provide you with a referral. We always advise you to contact your personal physician following an emergency department visit to inform them of the circumstance of the visit and for follow-up with them and/or the need for any referrals to a consulting specialist. The emergency department will also refer you to a specialist when appropriate. This referral assures that you have the opportunity for follow-up care with a specialist. All of these measure are taken in an effort to provide you with optimal care, which includes your follow-up. Under all circumstances we always encourage you to contact your private physician who remains a resource for coordinating your care. When calling for follow-up care, please make the office aware that this follow-up is from your recent emergency room visit. If for any reason you are refused follow-up, please contact the [facility] Emergency Department at and asked to speak to the emergency department charge nurse. [facility] [address] [place] [address] [place] [address] Thank you for choosing the [facility] emergency department in [place] for your medical needs today. It was a pleasure caring for you. Today you were seen in the emergency department for abdominal pain/chest wall pain. 1. You were evaluated today on an emergent basis. Your lab work and chest x-ray are within normal limits. Vital signs are stable and within normal limits. Your pain could be related to viral illness, but at this time there is no emergent reason for your discomfort. 2. You can alternate Tylenol and Ibuprofen as needed for pain and fever management. 3. We encourage you to follow up with your primary care provider and/or recommended specialist in the next few days for re-evaluation and further care/management. 4. If your symptoms should worsen, new symptoms develop or any of the signs and symptoms we discussed should arise please return to the emergency room or call 911 (if needed). Sepsis Event Note (ED) - Focused Exam Vital Signs: Vital Signs Temp Pulse Resp BP BP Pulse Ox 04/20/20 19:42 98.1 F 105 H 20 149/98 H 97 04/20/20 19:39 97.4 F 100 20 114/82 98
[2020-04-20] MEDS ORDERED: Sodium Chloride 0.9% 1,000 ML IV ONE (19:54)
[2020-04-20] MEDS ORDERED: Ketorolac 30 MG/ML SDV IVPUSH ONE (19:54)
[2020-04-20] MEDS ORDERED: Ondansetron 4 MG/2 ML SDV IVPUSH ONE (19:54)
[2020-04-20 20:43] LABS: BLOOD UREA NITROGEN,BUN 12 mg/dL (7.0-18.0); CARBON DIOXIDE,CO2 24.8 mmol/L (21.0-32.0); CHLORIDE,CL 100 mmol/L (98-107); GLUCOSE RANDOM 98 mg/dL (74-106); LIPASE 96 U/L (73-393); POTASSIUM,K 4.2 mmol/L (3.5-5.1); SODIUM,NA 137 mmol/L (136-145)
--- NOTE | 2020-04-20 21:19 | CR ---
INDICATION: Pain and SOB. TECHNIQUE: Portable AP image of the chest. COMPARISON: 10/12/2019. FINDINGS: Lungs and pleural spaces clear. Heart, mediastinum and pulmonary vessels normal. No significant osseous abnormality. IMPRESSION: Negative chest. Dictated by Jeremie Hartley MD @ Apr 20 2020 9:15PM Signed by Dr. Jeremie aHrtley @ Apr 20 2020 9:16PM
[2020-04-20 21:42] VITALS: BP 128/77; PULSE 92
== END 2020-04-20 21:27 | disposition home or self-care (01) ==
LOC: MW.ED 19:13
DX: R10.12 Left upper quadrant pain (principal); R07.89 Other chest pain; R11.0 Nausea
CPT/HCPCS: 36415; 71045; 80053; 81003; 83690; 85025; 96374; 96375; 99284; J1885; J2405; J7030; 99283

== ENCOUNTER 2021-05-23 03:22 | Emergency (ER) | payer SELFPAY ==
[2021-05-23] MEDS ORDERED: Sodium Chloride 0.9% 20 ML SDV IV PRN (03:45)
[2021-05-23] MEDS ORDERED: Sodium Chloride 0.9% 2.5 ML Syringe FLUSH PRN (03:45)
[2021-05-23] MEDS ORDERED: Sodium Chloride 0.9% 10 ML Syringe FLUSH PRN (03:45)
[2021-05-23] MEDS ORDERED: Iopamidol 755 MG/ML 500 ML Multipack Bottle IVPUSH ONE (04:00)
[2021-05-23] MEDS ORDERED: Ondansetron 4 MG/2 ML SDV IVPUSH ONE ×2 (04:11→04:56)
[2021-05-23 04:22] LABS: BLOOD UREA NITROGEN,BUN 23 mg/dL (7.0-18.0); CARBON DIOXIDE,CO2 28.5 mmol/L (21.0-32.0); CHLORIDE,CL 102 mmol/L (98-107); GLUCOSE RANDOM 114 mg/dL (74-106); POTASSIUM,K 4.3 mmol/L (3.5-5.1); SODIUM,NA 136 mmol/L (136-145)
[2021-05-23] MEDS ORDERED: fentaNYL 50 MCG/ML SDV IVPUSH ONE (04:56)
[2021-05-23 05:34] VITALS: BP 121/75; PULSE 91
== END 2021-05-23 05:45 | disposition home or self-care (01) ==
LOC: MW.ED 03:22
DX: R29.810 Facial weakness (principal); I10 Essential (primary) hypertension; E11.9 Type 2 diabetes mellitus without complications; Z79.899 Other long term (current) drug therapy
CPT/HCPCS: 36415; 37195; 70450; 70496; 70498; 73562; 80053; 84484; 85025; 85610; 85730; 93005; 96374; 96375; 96376; 99284; J2405; J3010; 93010; 99285; J3490